=== PATIENT | female | born 1990 | race Caucasian/White ===

== ENCOUNTER 2016-12-22 18:30 | Inpatient (IN) | payer BC ==
[2016-12-27] MEDS ORDERED: ZOLPIDEM TARTRATE 5 MG TAB PO PRN (18:10)
[2016-12-27] MEDS ORDERED: CALCIUM CARBONATE 500 MG TAB PO PRN (18:11)
[2016-12-27] MEDS ORDERED: OXYTOCIN/LR *STANDARD DOSE PROTOCOL IV SCH (18:30)
--- NOTE | 2016-12-27 19:32 | OBPROG ---
OBG Progress Note Assessment/Plan: Assessment: at 40w1d here for elective IOL Reassuring status GBS neg Vertex Plan: FB placed Admit to L&D IV, T&S, CBC Plan pitocin 0400 Plan of care discussed in detail with pt and 12/27/16 19:30 Subjective: Here for IOL. No concerns. GBS neg. Objective: VS WNL in tracevue Gen: NAD Resp: lungs clear, unlabored breaths CV: RRR Abd: Gravid, velvet's 7#, vertex, nontender Ext: non tender SVE: 1.5/70/-3/vtx. FB placed with 30 ml NS FHR baseline 130, mod shalom, + acc, no decel Mary Esther: intermittent contractions Bedside US: Vertex ICD10 Worksheet Patient Problems: Problems Problem Status Onset Normal Acute - ICD10 Problem Qualifiers (1) Normal Qualifiers: Trimester: third trimester Qualified Code(s): Z34.93 - Encounter for supervision of normal , unspecified, third trimester
[2016-12-28] MEDS ORDERED: OLIVE OIL 118 ML BTL ONE (01:54)
[2016-12-28] MEDS ORDERED: LIDOCAINE 1% 30 ML SDV ONE (01:54)
[2016-12-28] MEDS ORDERED: OXYTOCIN 10 UNIT/ML VIAL ONE (01:55)
[2016-12-28] MEDS ORDERED: AMMONIA AROMATIC 1 EACH AMP IH ONE (01:55)
[2016-12-28] MEDS ORDERED: MISOPROSTOL 200 MCG TAB ONE (01:55)
[2016-12-28] MEDS ORDERED: TERBUTALINE SULFATE 1 MG/ML VIAL ONE (01:55)
[2016-12-28] MEDS ORDERED: OLIVE OIL 118 ML BTL MISC PRN (02:05)
[2016-12-28] MEDS ORDERED: LIDOCAINE 1% 30 ML SDV SC PRN (02:05)
[2016-12-28] MEDS ORDERED: OXYTOCIN/RINGERS LACTATE 1,000 ML IV PRN (02:05)
[2016-12-28] MEDS ORDERED: LR 1,000 ML IV PRN (02:05)
[2016-12-28] MEDS ORDERED: EPSOM SALT 454 GM TP PRN (02:05)
[2016-12-28] MEDS ORDERED: TERBUTALINE SULFATE 1 MG/ML VIAL IV PRN (02:05)
[2016-12-28] MEDS ORDERED: OXYTOCIN/LR *STANDARD DOSE PROTOCOL IV SCH (04:00)
--- NOTE | 2016-12-28 07:42 | OBPROG ---
OBG Progress Note Assessment/Plan: Assessment: 26 yo @ 40 1/7, IOL, elective Plan: 12/28/16 07:40 FWB reassuring. GBS neg. Epidural as desired. Will re-evaluate in 2-3 hours to see if AROM has induced labor, if not, will begin pitocin. Subjective: 26 yo @ 40 1/7, IOL, elective-feeling contractions, likely desires epidural. Objective: VSS - SVE Dilation (cm): 5 Effacement (%): 75 Station: -2 Current Contraction Pattern: Regular FHR (bpm): 140 FHR Pattern Variability: Moderate FHR Category: 2 Membranes: AROM Amniotic Fluid Color: Clear ICD10 Worksheet Patient Problems: Problems Problem Status Onset Normal Acute
[2016-12-28 08:18] LABS: % IMMATURE GRANULYOCYTES 0.7 % (0.0-1.1); ABSOLUTE IMMATURE GRANULOCYTES 0.06 10^3/uL (0.00-0.10); ADD DIFF? NO; ADD MORPH? NO; ADD SCAN? NO; ATYPICAL LYMPHOCYTE FLAG 0 (0-99); FRAGMENT RBC FLAG 0 (0-99); HEMATOCRIT 33.9 % (38.0-47.0); HEMOGLOBIN 10.8 g/dL (12.6-16.3); LEFT SHIFT FLG 0 (0-99); LIPEMIA HEMOLYSIS FLAG 80 (0-99); MEAN CELL HEMOGLOBIN 28.6 pg (27.9-34.1); MEAN CELL HEMOGLOBIN CONCENTR. 31.9 g/dL (32.4-36.7); MEAN CELL VOLUME 89.7 fL (81.5-99.8); MEAN PLATELET VOLUME 11.6 fL (8.7-11.7); PLATELET CLUMPS FLAG 0 (0-99); PLATELET COUNT 164 10^3/uL (150-400); RED BLOOD CELL COUNT 3.78 10^6/uL (4.18-5.33)
--- NOTE | 2016-12-28 12:34 | OBPROG ---
OBG Progress Note Assessment/Plan: Assessment: 26 yo @ 40 1, IOL, elective Plan: FWB reassuring. GBS neg. Epidural as desired. Expect . 12/28/16 12:33 Subjective: 26 yo @ 40 1/7, IOL, elective Objective: 12/28/16 08:00 Patient ABO/Rh B POSITIVE 12/28/16 08:00 VSS - SVE Dilation (cm): 6 Effacement (%): 80 Station: -1 Current Contraction Pattern: Regular FHR (bpm): 140 FHR Pattern Variability: Moderate FHR Category: 2 Membranes: AROM Amniotic Fluid Color: Clear ICD10 Worksheet Patient Problems: Problems Problem Status Onset Normal Acute
[2016-12-28] MEDS ORDERED: fentaNYL 2MCG/ML/BUP 0.1% RTU 100 ML BAG EP ONE (13:20)
[2016-12-28] MEDS ORDERED: BUPIVACAINE 0.25% 30 ML SDV ONE (13:21)
[2016-12-28] MEDS ORDERED: fentaNYL 100 MCG/2 ML INJ ONE (13:21)
[2016-12-28] MEDS ORDERED: PHENYLEPHRINE HCL 100 MCG/ML SYR ONE (13:21)
[2016-12-28] MEDS ORDERED: ONDANSETRON 4 MG/2 ML VIAL ONE (13:22)
--- NOTE | 2016-12-28 16:14 | OBPROG ---
OBG Progress Note Assessment/Plan: Assessment: 26 yo @ 40 1, IOL, elective Plan: FWB reassuring. GBS neg. Epidural placed. IUPC placed to titrate pitocin. Expect . 12/28/16 16:13 Subjective: 26 yo @ 40 1/7, IOL, elective Objective: 12/28/16 08:00 Patient ABO/Rh B POSITIVE 12/28/16 08:00 VSS - SVE Dilation (cm): 8 Effacement (%): 100 Station: -1 Current Contraction Pattern: Regular FHR (bpm): 120 FHR Pattern Variability: Moderate FHR Category: 2 Membranes: AROM Amniotic Fluid Color: Clear ICD10 Worksheet Patient Problems: Problems Problem Status Onset Normal Acute
[2016-12-28] MEDS ORDERED: PHENYLEPHRINE HCL 100 MCG/ML SYR IVP PRN (17:37)
[2016-12-28] MEDS ORDERED: ONDANSETRON 4 MG/2 ML VIAL IVP PRN (17:37)
--- NOTE | 2016-12-28 17:42 | PREANESOB ---
Obstetric Pre-Anesthesia Info - General Info Proposed Procedure: Labor and delivery with pitocin. : 1 Para: 0 WBD: 40 - Info Status: Full Term Monitors: External FHR Baseline (bpm): 130 FHR Pattern: Reassuring - Labor Status Cervical Dilation per last OB SVE: 6 Station per last OB SVE: -1 Amniotic Fluid Color: Clear Pitocin: In Use Indications for Labor Analgesia: Induction of Labor, Pain Control Labor Epidural: Proposed Anesthesia ROS: Negative. Allergies/Adverse Reactions: Allergy/AdvReac Type Severity Reaction Status Date / Time codeine Allergy Severe Vomiting Verified 12/27/16 18:14 hydrocodone Allergy Severe Vomiting Verified 12/27/16 18:14 cetirizine Allergy Intermediate Hives Verified 12/27/16 18:14 ibuprofen Allergy Intermediate Hives Verified 12/27/16 18:14 Home Medications: Medication Instructions Recorded Zofran Odt 8 mg SUBMUCOSAL QID 12/27/16 Visit Medications: Generic Name Dose Route Start Last Admin Trade Name Freq PRN Reason Stop Dose Admin Acetaminophen 650 mg 12/27/16 18:10 Tylenol PO 06/25/17 18:09 Q6H PRN HEADACHE Calcium Carbonate 0 mg 12/27/16 18:11 Oyster Shell Calcium PO 06/25/17 18:10 Q4H PRN GERD Oxytocin/Lactated Ringer's 500 mls @ 0 mls/hr 12/28/16 04:00 12/28/16 09:13 Pitocin 30 Units/Lr (Premix) IV 06/26/17 03:59 500 mls CONT AMMY Administration Protocol Per Protocol Lactated Ringer's 1,000 mls @ 0 mls/hr 12/28/16 02:05 12/28/16 09:10 Lr IV 06/26/17 02:04 1,000 mls PRN PRN Administration SEE PROTOCOL CONDITIONS Protocol Per Protocol Oxytocin/Lactated Ringer's 1,000 mls @ 150 mls/hr 12/28/16 02:05 Pitocin 20 Units/Lr (Premix) IV PRN PRN Post- bleeding Lidocaine HCl 30 ml 12/28/16 02:05 Lidocaine Hcl 1% SC 06/26/17 02:04 ONCE PRN Episiotomy Magnesium Sulfate 454 gm 12/28/16 02:05 Epsom Salt TP 06/26/17 02:04 PRN PRN perineal discomfort Pep Oil 118 ml 12/28/16 02:05 Sweet Oil MISC 06/26/17 02:04 ONCE PRN preneal massage Terbutaline Sulfate 0.25 mg 12/28/16 02:05 Brethine IV 06/26/17 02:04 ONCE PRN Tachysystole Zolpidem Tartrate 5 mg 12/27/16 18:10 Ambien PO 06/25/17 18:09 HS PRN Sleep/Insomnia Discontinued Medications Generic Name Dose Route Start Last Admin Trade Name Fadia PRN Reason Stop Dose Admin Ammonia (Aromatic Spirit) Confirm 12/28/16 01:55 Ammonia Aromatic Administered 12/28/16 01:56 Dose 1 each IH .STK-MED ONE Bupivacaine HCl Confirm 12/28/16 13:21 Sensorcaine 0.25% Sdv Administered 12/28/16 13:22 Dose 30 ml .ROUTE .STK-MED ONE Fentanyl Confirm 12/28/16 13:21 Sublimaze Administered 12/28/16 13:22 Dose 100 mcg .ROUTE .STK-MED ONE Fentanyl/Bupivacaine HCl Confirm 12/28/16 13:20 Fentanyl/Bupivacaine/Ns 2 Mcg/Ml 0.1% (Premix Administered 12/28/16 13:21 Dose 100 ml EP .STK-MED ONE Oxytocin/Lactated Ringer's 500 mls @ 0 mls/hr 12/27/16 18:30 Pitocin 30 Units/Lr (Premix) IV 06/25/17 18:29 CONT AMMY Protocol Per Protocol Lidocaine HCl Confirm 12/28/16 01:54 Lidocaine Hcl 1% Administered 12/28/16 01:55 Dose 30 ml .ROUTE .STK-MED ONE Misoprostol Confirm 12/28/16 01:55 Cytotec Administered 12/28/16 01:56 Dose 1,000 mcg .ROUTE .STK-MED ONE Pep Oil Confirm 12/28/16 01:54 Sweet Oil Administered 12/28/16 01:55 Dose 118 ml .ROUTE .STK-MED ONE Ondansetron HCl Confirm 12/28/16 13:22 Zofran Administered 12/28/16 13:23 Dose 4 mg .ROUTE .STK-MED ONE Oxytocin Confirm 12/28/16 01:55 Pitocin Administered 12/28/16 01:56 Dose 40 unit .ROUTE .STK-MED ONE Phenylephrine HCl Confirm 12/28/16 13:21 Eddie-Synephrine Administered 12/28/16 13:22 Dose 1,000 mcg .ROUTE .STK-MED ONE Terbutaline Sulfate Confirm 12/28/16 01:55 Brethine Administered 12/28/16 01:56 Dose 1 mg .ROUTE .STK-MED ONE - Anesthesia History Response to Local Anesthetics: Normal Family Anesthesia History: Negative - Social History Substance Use/Abuse: Denies - Focused Exam Blood Pressure: 132/71 Heart Rate: 92 Respiratory Rate: 24 Height/Weight (Nursing): Height 162.56 cm Weight 74.843 kg Physical Exam: Within normal limits. ASA Status: II Labs: 12/28/16 08:00 Patient ABO/Rh B POSITIVE 12/28/16 08:00 - Plan Anesthetic Plan: CSE Consent Signed and on Chart: Yes Patient/Guardian Understands and Agrees to Plan: Yes
--- NOTE | 2016-12-28 17:44 | POSTANESTH ---
Post Anesthetic Evaluation Cardiovascular Status: Normal, Stable Respiratory Status: Normal, Stable, Similar to Pre-op Cond. (Tolerated CSE well , stable, comfortable.) Level of Consciousness/Mental Status: Can Participate in Eval, Alert and Oriented Pain Control: Adequate, Prn Tx Ordered Nausea/Vomiting Control: Adequate, Prn Tx Ordered Complications Possibly Related to Anesthesia: None Noted
[2016-12-28] MEDS ORDERED: fentaNYL 2MCG/ML/BUP 0.1% RTU 100 ML EP SCH (18:00)
[2016-12-28] MEDS ORDERED: LR 500 ML IV SCH (18:00)
--- NOTE | 2016-12-28 18:37 | OBPROG ---
OBG Progress Note Assessment/Plan: Assessment: 26 yo @ 40 1/7, IOL, elective Plan: FWB reassuring. GBS neg. Epidural placed. IUPC placed to titrate pitocin. Expect . 12/28/16 18:36 Subjective: 26 yo @ 40 1/7, IOL, elective-comfortable with epidural Objective: 12/28/16 08:00 Patient ABO/Rh B POSITIVE 12/28/16 08:00 Temp Pulse Resp BP Pulse Ox 92 24 H 132/71 H 12/28/16 17:43 12/28/16 17:43 12/28/16 17:43 - SVE Dilation (cm): 9 Effacement (%): 100 Station: -1 Current Contraction Pattern: Regular FHR (bpm): 120 FHR Pattern Variability: Moderate FHR Category: 2 Membranes: AROM Amniotic Fluid Color: Clear ICD10 Worksheet Patient Problems: Problems Problem Status Onset Normal Acute
--- NOTE | 2016-12-28 20:01 | OBPROG ---
OBG Progress Note Assessment/Plan: Assessment: 26 yo @ 40 1/7, IOL, elective Plan: FWB reassuring. GBS neg. Epidural placed. IUPC placed to titrate pitocin. Expect . Begin pushing. 12/28/16 20:00 Subjective: 26 yo @ 40 1/7, IOL, elective-feels pressure. Objective: 12/28/16 08:00 Patient ABO/Rh B POSITIVE 12/28/16 08:00 Temp Pulse Resp BP Pulse Ox 92 24 H 132/71 H 12/28/16 17:43 12/28/16 17:43 12/28/16 17:43 - SVE Dilation (cm): 10 Effacement (%): 100 Station: 0 Current Contraction Pattern: Regular FHR (bpm): 130 FHR Pattern Variability: Moderate FHR Category: 2 Membranes: AROM Amniotic Fluid Color: Clear ICD10 Worksheet Patient Problems: Problems Problem Status Onset Normal Acute
[2016-12-28] MEDS ORDERED: SIMETHICONE 80 MG TAB CHEW PO PRN (22:57)
[2016-12-28] MEDS ORDERED: HYDROCORTISONE 0.5% CREAM TP PRN (22:57)
--- NOTE | 2016-12-28 23:02 | OBPROC ---
- Labor and Delivery Onset of Contractions Date: 12/28/16 Onset of Contractions Time: 08:00 Onset of Contractions Type: Induced Rupture of Membranes Date: 12/28/16 Rupture of Membranes Time: 07:30 Rupture of Membranes Type: Artificial Amniotic Fluid Color: Clear Dilation Complete Time: 20:00 Delivery Type: Vacuum Placenta Delivery Date: 12/28/16 Episiotomy/Laceration: 2nd Degree, Midline Repair: 3-0, Vicryl EBL: 300 ml Complications: Nuchal Cord - Medications Labor Augmentation/Induction Meds Used: Pitocin Labor Augmentation/Induction Indication: Post Dates Anesthesia: Epidural - Info Infant A Delivery Date: 12/28/16 Delivery Time: 22:44 Sex of : Male Score (1 Min): 8 Score (5 Min): 9 (Vacuum assistance was used due to maternal exhaustion and heart rate variable decelerations. Fetus was at +4 station, OA position, bladder was emptied. With 3 pulls, 2 popoffs, the fetus was brought to and was delivered via maternal pushing shortly after a small midline episiotomy was cut for heart rate decelerations to the 100s. The infant was placed on the maternal abdomen, cord was cut after delay, placenta delivered spontaneously, midline episiotomy repaired with 3.0 vicryl, ebl 300 ml.)
[2016-12-29] MEDS: ACETAMINOPHEN 325 MG TAB PO PRN ×2 (05:27→22:22)
[2016-12-29] MEDS: OXYCODONE/APAP 5/325 TAB PO PRN ×4 (05:28→22:22)
--- NOTE | 2016-12-29 08:30 | SOAPPROG ---
SOAP Progress Note Assessment/Plan: Assessment: 26 y.o. PPD #1 s/p . Recovering well with good pain control. . Plan: Routine orders and care. 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 12/29/16 08:27 Subjective: Reports feeling well with good pain control and minimal vaginal bleeding. Eating and drinking well without nausea or vomiting. Appropriate mood with good support. Ambulating well without vertigo. Objective: Vital Signs Temp Pulse Resp BP Pulse Ox 37.0 C 76 18 122/64 H 96 12/29/16 02:00 12/29/16 02:00 12/29/16 02:00 12/29/16 02:00 12/29/16 01:45 Laboratory Results 12/28/16 08:00 12/28/16 12/29/16 12/30/16 05:59 05:59 05:59 Intake Total 2500 Output Total 300 Balance 2200 - Time Spent With Patient Time Spent With Patient: 20 minutes - Pending Discharge Pending Discharge Within 24 Hours: Yes Pending Discharge Date: 12/30/16 Pending Discharge Time: 11:00 Physical Exam - Physical Exam General Appearance: WD/WN, alert, no apparent distress EENT: normal ENT inspection Neck: non-tender, full range of motion, normal inspection Respiratory: lungs clear, normal breath sounds Cardiac/Chest: regular rate, rhythm Abdomen: non-tender, soft Pelvic Exam: normal external exam Rectal: deferred Back: Normal inspection Skin: normal color, warm/dry Lymphatic: no adenopathy Extremities: normal range of motion, non-tender Neuro/Psych: alert, normal mood/affect, oriented x 3 ICD10 Worksheet Patient Problems: Problems Problem Status Onset Normal Acute
[2016-12-29] MEDS: IRON POLYSAC/IRON HEME 28 MG TAB PO SCH (10:15)
[2016-12-29] MEDS: DOCUSATE SODIUM 100 MG CAP PO PRN ×2 (10:15→22:22)
[2016-12-30] MEDS: ACETAMINOPHEN 325 MG TAB PO PRN ×4 (02:19→19:21)
[2016-12-30] MEDS: OXYCODONE/APAP 5/325 TAB PO PRN ×4 (02:19→19:19)
--- NOTE | 2016-12-30 08:51 | OBGCSDC ---
General Delivery Information - General Info : 1 Para: 1 Delivery Date: 12/28/16 Delivery Physician/CNM: Nedra Mcelroy Labs: Patient ABO/Rh B POSITIVE 12/28/16 08:00 Hct 33.9 % (38.0-47.0) L 12/28/16 08:00 - Info Infant A Sex of Infant: Male Score (1 Min): 8 Score (5 Min): 9 (Vacuum assistance was used due to maternal exhaustion and heart rate variable decelerations. Fetus was at +4 station, OA position, bladder was emptied. With 3 pulls, 2 popoffs, the fetus was brought to and was delivered via maternal pushing shortly after a small midline episiotomy was cut for heart rate decelerations to the 100s. The infant was placed on the maternal abdomen, cord was cut after delay, placenta delivered spontaneously, midline episiotomy repaired with 3.0 vicryl, ebl 300 ml.) Vaginal - Diagnosis Labor: Induced Rupture of Membranes Type: Artificial Amniotic Fluid Color: Clear Repair: 3-0, Vicryl Complications: Nuchal Cord - Operations/Procedures Delivery Type: Vacuum - Hospital Course Antepartum: Elective IOL 40w1d. Intrapartum: FB, pitocin, AROM. VAVD for exhaustion and tracing : Routine pp care. Rh pos - Delivery EBL: 300 ml Anesthesia: Epidural Discharge Information - Discharge Information Discharge Medications: Percocet (has ibuprofen allergy) Condition: Good Instruction/Follow Up: Six Weeks Discharge Physician/CNM: Christy Wilkerson Discharge Date: 12/30/16 Dictated: No
[2016-12-30 11:50] VITALS: BP 112/71; PULSE 90; RESP 16; TEMP 98.2; O2SAT 94
[2016-12-30] MEDS: IRON POLYSAC/IRON HEME 28 MG TAB PO SCH (12:38)
[2016-12-30] MEDS: DOCUSATE SODIUM 100 MG CAP PO PRN (12:48)
== END 2016-12-30 19:25 | disposition home or self-care (01) | DRG 775 ==
LOC: FLD 12-27 17:00 → FOB 12-29 01:40
PROVIDERS: ADMIT Obstetrics & Gynecology; ATTEND Obstetrics & Gynecology
DX: O48.0 Post-term pregnancy (principal); O70.1 Second degree perineal laceration during delivery; O76 Abnormality in fetal heart rate and rhythm complicating labor and delivery; O75.81 Maternal exhaustion complicating labor and delivery; O69.81X0 Labor and delivery complicated by cord around neck, without compression, not applicable or unspecified; Z3A.40 40 weeks gestation of pregnancy; Z37.0 Single live birth
CPT/HCPCS: J2370; J2405; J2590; J3010; J3105

== ENCOUNTER → 2017-12-28 | Outpatient (CLI) | payer OTHER | LOC: FIMAGING 10:01 | PROVIDERS: ATTEND Obstetrics & Gynecology | DX: O09.892 Supervision of other high risk pregnancies, second trimester (principal); Z3A.19 19 weeks gestation of pregnancy ==

== ENCOUNTER → 2018-01-31 | Outpatient (CLI) | payer OTHER | LOC: FIMAGING 13:05 | PROVIDERS: ATTEND Obstetrics & Gynecology | DX: O21.8 Other vomiting complicating pregnancy (principal); Z3A.24 24 weeks gestation of pregnancy ==